=== PATIENT | female | born 1985 | race Caucasian/White ===

== ENCOUNTER 2024-01-29 12:17 | Emergency (ER) | payer SELFPAY ==
[2024-01-29 12:32] VITALS: BP 126/84; BMI 28.5
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
[2024-01-29 15:28] VITALS: BP 116/86
[2024-01-29] MEDS: ADACEL 0.5 ML IM (15:30)
== END 2024-01-29 15:44 | disposition home or self-care (01) ==
LOC: EMR 12:17
PROVIDERS: EMERGENCY PHYSICIAN Emergency Medicine
DX: S20.219A Contusion of unspecified front wall of thorax, initial encounter (principal); S00.83XA Contusion of other part of head, initial encounter; S00.81XA Abrasion of other part of head, initial encounter; V49.40XA Driver injured in collision with unspecified motor vehicles in traffic accident, initial encounter; Z23 Encounter for immunization
CPT/HCPCS: 99285; 90471; 71046; 72125; 90715; 93005

== ENCOUNTER 2024-08-31 18:37 | Emergency (ER) | payer OTHER, SELFPAY ==
[2024-08-31 18:49] VITALS: BP 133/73
--- NOTE | 2024-08-31 19:02 | ED.GENMED ---
ED Provider Triage
-
Patient seen by provider in Triage?: Seen in Triage
Attestation: A medical screening examination has been initiated by a qualified medical provider. Based on the assessment performed at this time, it has been determined that an emergent medical condition may exist and the patient has been informed
that further medical evaluation and possible additional diagnostic testing may be needed.
HPI: 39yoF here with a headache. C/o stabbing pain behind her R eye. Started around noon. Gradual in onset. C/o tingling in hands and nausea/vomiting. No prior history of similar headaches.
GENERAL: Alert , in no apparent distress
EYE: No visual abnormalities.
NECK: Trachea midline
ENT: No visible abnormalities.
LUNGS: No acute respiratory distress
NEUROLOGICAL: Alert and oriented
SKIN: Skin intact. No visible changes.
MUSCULOSKELETAL: Moving extremities normally
PSYCH: Normal and appropriate interaction.
This is a medical evaluation conducted in person to initiate diagnostic evaluation and provide initial therapeutics. Please see further documentation by the treating clinician.
CBC, CMP, magnesium, TSH, HCG, and CT head ordered.
History of Present Illness
General
Chief Complaint: Numbness
History of Present Illness
History of Present Illness:
N/a
Past History
Past History
ED Past Medical History: Psychiatric (Depression: Takes Effexor and Adderall)
ED Past Surgical History: Tonsilectomy
Social History
Tobacco: Vaping
Alcohol: None
Drug: None
Personal:
Living: with family
Employment: Employed
Family History
Family History: Diabetes; Negative Early CAD or Sudden
Phy Exam
Physical Exam
Physical Exam:
N/a
Course
Orders/Labs/Results
Orders:
Orders
08/31/24 19:01
CT Head W/o Iv Contrast Urgent
Comment:
Reason For Exam: acute headache
08/31/24 19:02
Test Result ONCE
08/31/24 19:08
Complete Blood Count/With Diff Urgent
Comprehensive Metabolic Panel Urgent
HCG, Serum Qualitative Screen Urgent
Magnesium Urgent
TSH Reflex To Free T4 Urgent
Abnormal Lab Results
08/31/24
19:08
WBC 11.1 H 10^3/uL
(4.8-10.8)
Plt Count 402 H 10^3/uL
(130-400)
Absolute Neuts (auto) 7.3 H 10^3/uL
(1.4-6.5)
Glucose 105 H mg/dl
(70-99)
Total Protein 9.0 H g/dl
(6.3-8.2)
Albumin 5.5 H g/dl
(3.5-5.0)
08/31/24 19:08
08/31/24 19:08
Vital Signs
Initial and Last Documented VS:
Initial Vital Signs
Temp Pulse Resp BP Pulse Ox
98.3 F 90 16 133/73 99
08/31/24 18:49 08/31/24 18:49 08/31/24 18:49 08/31/24 18:49 08/31/24 18:49
Last Documented Vital Signs
Temp Pulse Resp BP Pulse Ox
98.3 F 90 16 133/73 99
08/31/24 18:49 08/31/24 18:49 08/31/24 18:49 08/31/24 18:49 08/31/24 18:49
*Critical Care Note
Total Time (30-74mins, 75-104mins- exclusive of procedures): Not Applicable
Update Note
Update Note:
Patient left department after triage assessment.
ED Attending Note
-
Portions of this chart may have been created with voice recognition software.� Occasional wrong word or��sound alike� substitutions may have occurred due to the inherent limitations of voice recognition software.
Discharge Plan
Departure
Patient Disposition: Left Without Treatment
Prescriptions:
No Action
Multivitamins Tablet
1 tab PO DAILY
ondansetron 4 MG tablet,disintegrating
4 mg PO TIDPRN PRN (Reason: nausea) Qty: 10 0RF
nitrofurantoin monohyd/m-cryst [Macrobid] 100 MG capsule
100 mg PO BID Qty: 14 0RF
ibuprofen 600 MG tablet
600 mg PO Q6HPRN PRN (Reason: pain) Qty: 20 0RF
diazepam 5 MG tablet
5 mg PO TIDPRN PRN (Reason: muscle pain) Qty: 10 0RF
cyclobenzaprine 10 mg tablet
10 mg PO BID PRN (Reason: muscle tightness/pain) Qty: 14 0RF
Interventions
Interventions:
*Risk Screen - Suicide Last Done: 08/31/24 18:49
*General Assessment Last Done: 08/31/24 18:49
*Neglect/Abuse Screening Last Done: 08/31/24 23:56
ED- Fall Risk Assessment Last Done: 08/31/24 23:59
*ED COVID-19 Vaccine History Last Done: 08/31/24 18:49
*Nursing Disposition Last Done: 08/31/24 23:58
ED- Neurological Assessment Last Done: 08/31/24 23:59
Discharge Date and Time
Discharge Date/Time: 08/31/24 23:58
Print Language: GAMBIAN
[2024-08-31 19:16] LABS: % Basophils 0.5 % (0-2); % Eosinophils 0.8 % (0-6); % Immature Granulocytes 0.3 % (0-0.5); % Lymphocytes 27.4 % (20.5-51.1); % Monocytes 5.5 % (1.7-9.3); % Neutrophils 65.5 % (42.2-75.2); Absolute Basophils 0.1 10^3/uL (0-0.2); Absolute Eosinophils 0.1 10^3/uL (0-0.7); Absolute Lymphocytes 3.1 10^3/uL (1.2-3.4); Absolute Monocytes 0.6 10^3/uL (0.1-0.6); Absolute Neutrophils 7.3 10^3/uL (1.4-6.5); Hematocrit 39.8 % (37.0-47.0); Mean Corp Hgb Conc. 35.2 g/dL (33.0-37.0); Mean Corpuscular Hgb 29.3 pg (27.0-31.0); Mean Corpuscular Volume 83.3 fL (81.0-99.0); Mean Platelet Volume 9.7 fL (7.4-10.4); Nucleated Red Blood Cells % 0 %; Platelet Count 402 10^3/uL (130-400); Red Blood Cell Count 4.78 10^6/uL (4.20-5.40); Red Cell Dist. Width 12.3 % (11.5-14.5); White Blood Cell Count 11.1 10^3/uL (4.8-10.8)
[2024-08-31 19:31] LABS: HCG, Serum Qualitative Screen Negative
[2024-08-31 19:46] LABS: ALT (SGPT) 19 U/L (0-35); AST (SGOT) 18 U/L (14-36); Albumin 5.5 g/dl (3.5-5.0); Alkaline Phosphatase 70 U/L (38-126); Blood Urea Nitrogen 7 mg/dl (7-17); Carbon Dioxide 24 mmol/L (22-30); Chloride 98 mmol/L (98-107); Glucose 105 mg/dl (70-99); Magnesium 2.1 mg/dl (1.6-2.3); Potassium 3.9 mmol/L (3.5-5.1); Sodium 136 mmol/L (135-145); eGFR > 60.00
[2024-08-31 20:00] LABS: Total Bilirubin 0.8 mg/dl (0.2-1.3)
[2024-08-31 20:02] LABS: TSH Reflex To Free T4 1.87 uIU/ml (0.47-4.68)
== END 2024-08-31 23:58 | disposition left against medical advice (07) ==
LOC: EMR 18:37
PROVIDERS: Physician Assistant
DX: R51.9 Headache, unspecified (principal); R11.2 Nausea with vomiting, unspecified; F17.290 Nicotine dependence, other tobacco product, uncomplicated; Z83.3 Family history of diabetes mellitus
CPT/HCPCS: 70450; 80053; 83735; 84443; 84703; 85025